=== PATIENT | female | born 1985 | race Caucasian/White ===

== ENCOUNTER 2016-11-27 17:07 | Emergency (ER) | payer MEDICAID ==
[2016-11-27 17:52] VITALS: BP 100/56; PULSE 72; RESP 16; TEMP 98.5; O2SAT 98
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
--- NOTE | 2016-11-28 09:29 | RAD ---
PROCEDURE: Right Hip and pelvis Radiographs. HISTORY: hip/pelvis pain COMPARISON: None. FINDINGS: BONES: Normal. No fracture. JOINTS: Normal. SOFT TISSUES: Normal. OTHER FINDINGS: None. IMPRESSION: Negative study
--- NOTE | 2016-11-28 09:30 | RAD ---
PROCEDURE: Radiographs of the Lumbar Spine. HISTORY: back pain COMPARISON: No prior. FINDINGS: BONES: Normal alignment. No listhesis. No fracture. DISC SPACES: Unremarkable. OTHER FINDINGS: None. IMPRESSION: Unremarkable radiographs of the lumbar spine.
== END 2016-11-27 20:52 | disposition home or self-care (01) ==
LOC: MERGE 17:07 → ED 17:07
DX: M54.5 Low back pain (principal); K59.00 Constipation, unspecified